=== PATIENT | female | born 1960 | race Caucasian/White ===

== ENCOUNTER 2018-07-28 17:11 | Emergency (ER) | payer OTHER ==
[~2018-07-28] VITALS: Ht 160 cm; Wt 71.3 kg
[2018-07-28 17:14] VITALS: Ht 160 cm; Wt 71.3 kg
[2018-07-28] MEDS ORDERED: ONDANSETRON (ODT) 4 MG TAB ODT STA (18:55)
[2018-07-28] MEDS ORDERED: BISM262O23 PO (20:09)
[2018-07-28] MEDS ORDERED: ONDA8TAB14 PO (20:09)
[2018-07-28] MEDS ORDERED: ACET500C5 PO (20:09)
--- NOTE | 2018-07-28 20:11 | ERD ---
ER Documentation Chief Complaint Chief Complaint VOMITING AND DIARRHEA SINCE LAST NIGHT; "STOMACH FLU" HPI This 58-year-old female presents with vomiting diarrhea since last night. Vomiting is nonbilious nonbloody and diarrhea was without blood. She has mild intermittent crampy epigastric pain. She denies fevers. Denies sick contacts, foreign travel or suspect food. ROS All systems reviewed and are negative except as per history of present illness. Medications Home Meds Active Scripts Acetaminophen* (Tylophen*) 500 Mg Capsule, 1 CAP PO Q6H PRN for PAIN AND OR ELEVATED TEMP, #15 CAP Prov:OMAR STEINER MD 07/28/18 Bismuth Subsalicylate* (Pepto-Bismol*) 262 Mg/15 Ml Oral.susp, 15 ML PO Q3H PRN for DIARRHEA for 4 Days, ML Prov:OMAR STEINER MD 07/28/18 Ondansetron (Ondansetron Odt) 8 Mg Tab.rapdis, 8 MG PO Q6H PRN for NAUSEA AND/OR VOMITING, #8 TAB Prov:OMAR STEINER MD 07/28/18 Allergies Allergies: Coded Allergies: No Known Allergy (Unverified , 09/17/13) PMhx/Soc History of Surgery: No Anesthesia Reaction: No Hx Neurological Disorder: No Hx Respiratory Disorders: No Hx Cardiac Disorders: No Hx Psychiatric Problems: No Hx Miscellaneous Medical Probl: Yes (HX RIGHT ARM PAIN MED HERE 2 DAYS AGO...) Hx Alcohol Use: No Hx Substance Use: No Hx Tobacco Use: No Smoking Status: Never smoker FmHx Family History: No diabetes, No coronary disease, No other Physical Exam Vitals Vital Signs Date Temp Pulse Resp B/P (MAP) Pulse Ox O2 O2 Flow FiO2 Time Delivery Rate 07/28/18 98.4 104 18 131/64 99 17:14 (86) Physical Exam Const: No acute distress Head: Atraumatic Eyes: Normal Conjunctiva ENT: Normal External Ears, Nose and Mouth. Neck: Full range of motion. No meningismus. Resp: Clear to auscultation bilaterally Cardio: Regular rate and rhythm, no murmurs Abd: Soft, non tender, non distended. Normal bowel sounds Skin: No petechiae or rashes Back: No midline or flank tenderness Ext: No cyanosis, or edema Neur: Awake and alert Psych: Normal Mood and Affect Results 24 hrs Current Medications Medications Dose Sig/Arianne Start Time Status Last (Trade) Ordered Route PRN Stop Time Admin Dose Reason Admin Ondansetron 8 mg ONCE STAT 07/28/18 DC 07/28/18 HCl (Zofran ODT 18:55 07/28/18 19:21 Odt) 18:57 Procedures/MDM Patient was given Zofran 8 mg by mouth. Patient had no further episodes of vomiting during ER course and was able to tolerate p.o.'s. She had a benign abdomen on serial exam. Patient likely has early viral gastroenteritis present signs of dehydration or abdominal pain or additional concerning symptoms. She will treated with Zofran, Tylenol, Pepto-Bismol, primary care follow-up and return precautions. The patient was stable with no new complaints during the ER course. Clinically, there is no current evidence to suggest meningitis, sepsis, acute abdomen, pneumonia, stroke, acute coronary syndrome, pulmonary embolism, aortic dissection or any other emergent condition appearing to require further evaluation or hospitalization. Patient counseled regarding my diagnostic impression and care plan. Prior to discharge all questions answered. Pt agrees with treatment plan and understands strict return precautions. Pt is instructed to follow up with primary care provider within 24-48 hours. Precautionary instructions provided including instructions to return to the ER if not improving or for any worsening or changing symptoms or concerns. Departure Diagnosis: Primary Impression: Vomiting and diarrhea Condition: Stable Patient Instructions: Self-Care for Vomiting and Diarrhea, Vomiting And Diarrhea, Nonspecific (Adult) Referrals: DOCTOR,NOT ON STAFF (PCP) Additional Instructions: Probablamente un virus que dura 2-4 house. cheque otro vez en el proximo melvin para mas simptomas- vomito, dolor, feng, problemas con respirando, o con avitia doctor primario. OMAR STEINER MD Jul 28, 2018 20:10
[2018-07-28 20:50] VITALS: BP 141/66; PULSE 104; RESP 18
== END 2018-07-28 20:54 | disposition home or self-care (01) ==
LOC: FTE 17:11
DX: R11.10 Vomiting, unspecified (principal); R19.7 Diarrhea, unspecified
CPT/HCPCS: 81001; Z7502; Z7610; 99283

== ENCOUNTER 2018-12-29 22:05 | Emergency (ER) | payer OTHER ==
[~2018-12-29] VITALS: Ht 154.9 cm; Wt 73.7 kg
[~2018-12-29 22:05] MED LIST: ACET500C5 PO; BISM262O23 PO; ONDA8TAB14 PO
[2018-12-29 22:14] VITALS: Ht 154.9 cm; Wt 73.7 kg
[2018-12-29] MEDS ORDERED: morphine 4 MG/ML VIAL IV STA (22:59)
[2018-12-29] MEDS ORDERED: ONDANSETRON 4 MG INJ IV STA (22:59)
[2018-12-29] MEDS ORDERED: SOD CHLORIDE 0.9% 1,000 ML IV STA (22:59)
[2018-12-29 23:40] VITALS: BP 104/57; PULSE 82; RESP 16
--- NOTE | 2018-12-30 00:11 | ERD ---
ER Documentation Chief Complaint Chief Complaint AP, FEVER X'S 2 DAYS HPI Is a 58-year-old female coming with abdominal pain fever for 2 days. Pain is mild to moderate intensity no exacerbating alleviating factors. Denies any nausea or any other current complaints. Pain is mild to moderate intensity with mild diarrhea. No blood in stool. No other current complaints. ROS All systems reviewed and are negative except as per history of present illness. Medications Home Meds Active Scripts Acetaminophen* (Tylophen*) 500 Mg Capsule, 1 CAP PO Q6H PRN for PAIN AND OR ELEVATED TEMP, #15 CAP Prov:OMAR STEINER MD 07/28/18 Bismuth Subsalicylate* (Pepto-Bismol*) 262 Mg/15 Ml Oral.susp, 15 ML PO Q3H PRN for DIARRHEA for 4 Days, ML Prov:OMAR STEINER MD 07/28/18 Ondansetron (Ondansetron Odt) 8 Mg Tab.rapdis, 8 MG PO Q6H PRN for NAUSEA AND/OR VOMITING, #8 TAB Prov:OMAR STEINER MD 07/28/18 Allergies Allergies: Coded Allergies: No Known Allergy (Unverified , 09/17/13) PMhx/Soc History of Surgery: Yes (uterine fibroid removal) Anesthesia Reaction: No Hx Neurological Disorder: No Hx Respiratory Disorders: No Hx Cardiac Disorders: No Hx Psychiatric Problems: No Hx Miscellaneous Medical Probl: Yes (HX RIGHT ARM PAIN MED HERE 2 DAYS AGO...) Hx Alcohol Use: No Hx Substance Use: No Hx Tobacco Use: No Smoking Status: Never smoker Physical Exam Vitals Vital Signs Date Temp Pulse Resp B/P (MAP) Pulse Ox O2 O2 Flow FiO2 Time Delivery Rate 12/29/18 98.4 82 16 104/57 96 Room Air 23:40 (73) 12/29/18 101.7 100 18 124/67 96 22:14 (86) Physical Exam Const: No acute distress Head: Atraumatic Eyes: Normal Conjunctiva ENT: Normal External Ears, Nose and Mouth. Neck: Full range of motion. No meningismus. Resp: Clear to auscultation bilaterally Cardio: Regular rate and rhythm, no murmurs Abd: Soft, non tender, non distended. Normal bowel sounds Skin: No petechiae or rashes Back: No midline or flank tenderness Ext: No cyanosis, or edema Neur: Awake and alert Psych: Normal Mood and Affect Result Diagram: 12/29/18230712/29/182307 Results 24 hrs Laboratory Tests Test 12/29/18 23:08 White Blood Count 10.8 10^3/ul Red Blood Count 4.36 10^6/ul Hemoglobin 12.5 g/dl Hematocrit 38.6 % Mean Corpuscular Volume 88.5 fl Mean Corpuscular Hemoglobin 28.7 pg Mean Corpuscular Hemoglobin Concent 32.4 g/dl Red Cell Distribution Width 13.9 % Platelet Count 293 10^3/UL Mean Platelet Volume 10.0 fl Immature Granulocytes % 0.200 % Neutrophils % 80.0 % Lymphocytes % 13.3 % Monocytes % 6.0 % Eosinophils % 0.2 % Basophils % 0.3 % Nucleated Red Blood Cells % 0.0 /100WBC Immature Granulocytes # 0.020 10^3/ul Neutrophils # 8.6 10^3/ul Lymphocytes # 1.4 10^3/ul Monocytes # 0.7 10^3/ul Eosinophils # 0.0 10^3/ul Basophils # 0.0 10^3/ul Nucleated Red Blood Cells # 0.0 10^3/ul Urine Color YELLOW Urine Clarity SLIGHTLY CLOUDY Urine pH 5.0 Urine Specific [place] 1.019 Urine Ketones NEGATIVE mg/dL Urine Nitrite NEGATIVE mg/dL Urine Bilirubin NEGATIVE mg/dL Urine Urobilinogen NEGATIVE mg/dL Urine Leukocyte Esterase 1+ Nakita/ul Urine Microscopic RBC 8 /HPF Urine Microscopic WBC 7 /HPF Urine Squamous Epithelial Cells FEW /HPF Urine Mucus FEW /HPF Urine Hemoglobin 3+ mg/dL Urine Glucose NEGATIVE mg/dL Urine Total Protein NEGATIVE mg/dl Sodium Level 141 mmol/L Potassium Level 3.5 mmol/L Chloride Level 107 mmol/L Carbon Dioxide Level 24 mmol/L Anion Gap 10 Blood Urea Nitrogen 11 mg/dl Creatinine 0.77 mg/dl Est Glomerular Filtrat Rate mL/min > 60 mL/min Glucose Level 115 mg/dl Calcium Level 8.8 mg/dl Total Bilirubin 0.3 mg/dl Direct Bilirubin 0.00 mg/dl Indirect Bilirubin 0.3 mg/dl Aspartate Amino Transf (AST/SGOT) 28 IU/L Alanine Aminotransferase (ALT/SGPT) 24 IU/L Alkaline Phosphatase 96 IU/L Total Protein 8.0 g/dl Albumin 4.0 g/dl Globulin 4.00 g/dl Albumin/Globulin Ratio 1.00 Lipase 40 U/L Current Medications Medications Dose Sig/Arianne Start Time Status Last (Trade) Ordered Route PRN Stop Time Admin Dose Reason Admin Sodium 1,000 ml @ Q1H STAT 12/29/18 DC 12/29/18 Chloride 1,000 mls/hr IV 22:59 23:04 12/29/18 23:58 Morphine 4 mg ONCE STAT 12/29/18 DC 12/29/18 Sulfate IV 22:59 23:04 (morphine) 12/29/18 23:00 Ondansetron 4 mg ONCE STAT 12/29/18 DC 12/29/18 HCl (Zofran IV 22:59 23:04 Inj) 12/29/18 23:00 Procedures/MDM This is a 58-year-old female comes in with complaints of mild abdominal pain with diarrhea. CT shows evidence of colitis. Is likely infectious. Patient be discharged home with Cipro and Flagyl. Patient's gastrointestinal symptoms have stabilized while in the department. No evidence of severe dehydration, sepsis, or surgical abdomen. Extensive discussion with family and patient that occult disease cannot be ruled out. 8 hour recheck for repeat abdominal exam is planned. Departure Diagnosis: Primary Impression: Colitis Condition: Stable SCOTT BERMAN Dec 30, 2018 00:11
[2018-12-30] MEDS ORDERED: TRAM50TA2 PO (00:16)
[2018-12-30] MEDS ORDERED: CIPR500T4 PO (00:16)
[2018-12-30] MEDS ORDERED: METR500T PO (00:16)
== END 2018-12-30 00:37 | disposition home or self-care (01) ==
LOC: E/R 22:05
DX: K52.9 Noninfective gastroenteritis and colitis, unspecified (principal)
CPT/HCPCS: 36415; 74176; 80053; 81001; 83690; 85025; 96374; 96375; J2270; J2405; J7030; Z7502